=== PATIENT | male | born 1945 | race Caucasian/White ===

== ENCOUNTER 2020-10-24 10:48 | Inpatient (IN) ==
[2020-10-24] MEDS ORDERED: IOPAMIDOL 100 ML BOTTLE IV ONE (10:49)
[2020-10-24] MEDS ORDERED: 0.9 % SODIUM CHLORIDE 1,000 ML IV ONE ×3 (11:17→16:42)
[2020-10-24] MEDS ORDERED: ONDANSETRON 4 MG/2 ML VIAL IV ONE (11:21)
--- NOTE | 2020-10-24 11:22 | Emergency Department Note ---
HPI General Chief complaint: Urogenital-Male Stated complaint: catheter leaking and nausea Time Seen by Provider: 10/24/20 10:57 Source: patient, family, RN notes reviewed and old records reviewed Mode of arrival: ambulatory Limitations: no limitations History of Present Illness HPI Narrative: Narrative: 75-year-old male with indwelling Ruelas catheter notes that he has been having significant leakage around the catheter with a decreased urine output in the Ruelas. Said a problem with this for over a week. But it has become worse in the last 24 hours. Patient has had nausea but no vomiting has had chills but no fevers and complains of dysuria associated with his Ruelas catheter. He denies any chest pain he denies any shortness of breath he denies any cough. Patient was noted to be tachycardic upon arrival. Onset (ago): day(s) Location: other () Radiation: non-radiation Severity: moderate Quality: aching Consistency: intermittent Improves with: other (Urination) Worsens with: eating Associated symptoms: Reports fever/chills, loss of appetite, nausea/vomiting and shortness of breath; Denies confusion, chest pain, cough, diaphoresis, headaches, malaise, rash, seizure, syncope and weakness Treatments Prior to Arrival: other (Ruelas) Related Data Home Medications Medication Instructions Recorded Confirmed omega-3 fatty acids 1,000 mg 1,000 mg PO BID cap 03/02/15 10/19/20 capsule [id number]-LJ-lycopen-lutein 1 each PO DAILY 05/29/19 10/19/20 Previous Rx's Medication Instructions Recorded losartan 100 mg tablet 100 mg PO QDAY 90 Days #90 tab 10/31/19 amlodipine 10 mg tablet 10 mg PO HS #90 tab 12/09/19 potassium chloride 10 mEq 10 meq PO DAILY #90 cap 02/13/20 capsule,extended release insulin syringe-needle U-100 0.3 #100 each 03/04/20 mL 31 gauge x 5/16" blood sugar diagnostic #100 unknown measurement unit 03/11/20 code: strip sildenafil 100 mg tablet 100 mg PO ONCE PRN #25 tab 03/11/20 blood-glucose meter #1 each 03/12/20 lancets #100 each 03/12/20 atorvastatin 20 mg tablet See Rx Instructions .ROUTE 03/16/20 .COMPLEX #90 tab indapamide 2.5 mg tablet See Rx Instructions .ROUTE 03/26/20 .COMPLEX #45 tab metformin 500 mg tablet See Rx Instructions .ROUTE 03/26/20 .COMPLEX #450 tab levothyroxine 50 mcg tablet See Rx Instructions .ROUTE 04/23/20 .COMPLEX #90 tablet insulin detemir U-100 100 unit/mL See Rx Instructions .ROUTE 06/03/20 subcutaneous solution .COMPLEX #10 ml Allergies Allergy/AdvReac Type Severity Reaction Status Date / Time ciprofloxacin Allergy Intermediate Joint Pain Verified 10/19/20 18:59 testosterone [From AndroGel] AdvReac Intermediate Itching Verified 10/19/20 18:59 benazepril AdvReac Mild Cough Verified 10/19/20 18:59 Review of Systems ROS ROS Narrative: Narrative: All systems ED: reviewed and negative except as stated. PFSH Narrative Patient History Narrative: Narrative: Medical/Surgical/Family History All Active Problems (Updated 10/24/20 @ 13:59 by Cliff López MD) Acute urinary retention (Acute) Obstructed Ruelas catheter (Acute) Sepsis (Acute) Pulmonary emboli (Acute) Lumbago (Acute) Abdominal pain (Acute) Kidney stone on left side (Acute) Hypokalemia (Acute) Colon polyp (Chronic) Cyst of scrotum (Chronic) Encounter for Health Maintenance Examination in Adult (Chronic) Herpes zoster (Acute) Abdominal pain (Acute) Balanitis xerotica obliterans (Chronic) Chronic renal failure (Chronic) Hx of partial thyroidectomy (Acute) History of hip surgery (Acute) Hx of colonoscopy (Acute 12/03/07) Testosterone deficiency (Chronic) Peptic ulcer disease (Chronic) Hypothyroidism (acquired) (Chronic 11/03/14) Hypertension, essential (Chronic) Hyperlipidemia (Chronic) Elevated PSA (Chronic 10/24/13) Dyspepsia (Chronic) Diabetes mellitus, type II (Chronic) DJD (degenerative joint disease) (Chronic) Colonic polyp (Chronic) Anemia (Chronic 11/03/14) Medical History (Updated 10/24/20 @ 13:59 by Cliff López MD) Abdominal pain Abdominal pain Anemia (11/03/14) Balanitis xerotica obliterans BPH without obstruction/lower urinary tract symptoms (12/19/13) Chest pain 1999 Atypical, ETT 07/1999, negative cath 2003, echo 05/2009 showing ejection fraction of 55%, cardiology review 07/[address]. [address] Montoya on a yearly basis Chronic renal failure Colonic polyp 11/12-Dr. Vickers--ascending adenomatous polyp ( history of tubular adenoma 2002). 5-year sequence. 12/24/12 Colonoscopy--Dr. vickers--Splenic flexure to proximal sigmoid colon, a few medium nonbleeding diverticula. 10-year sequence Diabetes mellitus, type II 07/2004-NIDDM on , Metformin. Good foot care. Eye exam up to date as of 07/2010 DJD (degenerative joint disease) Multi-joint degenerative arthritis Dyspepsia 2010 Peptic ulcer disease with mild increased dyspepsia--on OTC Prilosec Elevated PSA (10/24/13) Epididymal cyst (05/13/14) Hydrocele small, bilateral Hyperlipidemia mild hyperlipidemia, diet treated Hypertension, essential Amlodipine, Benazepril Hypothyroidism (acquired) (11/03/14) Lumbago Nasal polyp 1999 History of nasal polyps with mild obstructive symptoms. Nasal Polypectomy 1999 Peptic ulcer disease Peptic ulcer disease with bleeding ulcer in the distant past. Reflux was controlled with Pepcid, then Nexium--now off. OTC Prilosec Testosterone deficiency Past history of testosterone deficiency; tried Androgel, discontinuing mid- 2006. Adequate results with Viagra Thyroid disorder Status post partial thyroidectomy for benign pathology 12/2007. Surgical History History of hip surgery 02/2008-Left Hip Surgery- Dr. burrell Hx of appendectomy Hx of arthroscopy Right knee arthroscopy Hx of colonoscopy (12/03/07) 11/12-Dr. Vickers--ascending adenomatous polyp ( history of tubular adenoma 2002). 5-year sequence. 12/24/12 Colonoscopy--Dr. vickers--Splenic flexure to proximal sigmoid colon, a few medium nonbleeding diverticula. 10-year sequence Hx of nasal polypectomy 1999-left Hx of partial thyroidectomy 12/2007 Partial thyroidectomy for benign pathology Hx of prostate biopsy (12/05/13) Family History father Diabetes mellitus Acute myocardial infarction none listed Essential hypertension Seizure Cerebrovascular accident (CVA) Social History Smoking Status: Never smoker Alcohol Intake Frequency: holiday/special occasion only Substance Use: does not use Exam Narrative Narrative: Narrative: General Limitations: no limitations General appearance: Present alert and in no apparent distress Head Head: Present atraumatic, normocephalic and normal inspection Eye Eye: Present normal appearance, PERRL and EOMI; Absent scleral icterus and conjunctival injection ENT ENT: Present normal exam, normal oropharynx and mucous membranes moist Neck Neck: Present normal inspection, full ROM and trachea midline; Absent lymphadenopathy and thyromegaly Chest Chest: Present normal inspection and symmetric chest wall rise; Absent tenderness Respiratory Respiratory: Present normal lung sounds bilaterally; Absent respiratory distress, rales/crackles, wheezes, stridor, accessory muscle use and prolonged expiratory phase Cardiovascular Cardiovascular: Present normal rhythm, tachycardia and systolic murmur; Absent diastolic murmur Adbominal Abdominal: Present soft; Absent distention, tenderness, guarding, rebound, rigidity, organomegaly and mass : Present other (Ruelas with leg bag in place) Extremities Extremities: Present normal inspection, normal capillary refill and pretibial edema; Absent pedal edema and calf tenderness Back Back: Absent CVA tenderness (R), CVA tenderness (L) and spinous process tend erness Neurological Neurological: Present alert and oriented X3 Psychiatric Psychiatric: Present normal affect and normal mood Skin Skin: Present warm (WNL) and dry Course Vital Signs Vital signs: Vital Signs Temperature 98.2 F 10/24/20 10:50 Pulse Rate 125 H 10/24/20 10:50 Respiratory Rate 18 10/24/20 10:50 Blood Pressure 142/93 10/24/20 10:50 Pulse Oximetry (%) 95 10/24/20 10:50 Temperature 98.2 F 10/24/20 10:50 Pulse Rate 105 H 10/24/20 13:58 Respiratory Rate 23 H 10/24/20 13:58 Blood Pressure 143/72 10/24/20 13:57 Pulse Oximetry (%) 95 10/24/20 13:58 MDM MDM Narrative Medical decision making narrative: Narrative: 75-year-old male with sepsis white count 18.0 with a left shift dehydration with a BUN to creatinine ratio of 28:1, chest CT shows a small pulmonary, D-dimer was elevated at 1.03 lactic acid was 3.2. Patient received IV fluid resuscitation and 1 L aliquots. I did not do the 30 cc/kg as patient has a history of congestive heart failure and cardiomegaly on chest x-ray. Patient received IV Rocephin for UTI. Differential Diagnosis Differential Diagnosis: Sepsis, PE, pneumonia, UTI, prostatitis. Medical Records Medical records reviewed: Yes I reviewed the patient's medical records. Lab Data Lab results reviewed: Yes I reviewed the patient's lab results. Result diagrams: 10/24/20 11:47 10/24/20 11:47 Labs: Lab Results 10/24/20 10/24/20 10/24/20 Range/Units 11:38 11:46 11:46 WBC (4.5-11.0) K/mcL RBC (4.50-5.90) M/mcL Hgb (13.5-16.5) g/dL Hct (41.0-55.0) % MCV (80.0-100.0) fL MCH (26.0-34.0) pg MCHC (31.0-36.0) g/dL RDW (11.5-14.5) % Plt Count (140-440) K/mcL MPV (7.4-10.4) fL Neut % (Auto) (38.0-78.0) % Lymph % (Auto) (15.0-49.0) % Boundary % (Auto) (1.0-12.0) % Eos % (Auto) (0.0-7.0) % Baso % (Auto) (0.0-2.0) % Lymph # (Auto) (1.50-4.80) K/mcL Boundary # (Auto) (0.10-0.90) K/mcL Eos # (Auto) (0.00-0.70) K/mcL Baso # (Auto) (0.00-0.20) K/mcL Absolute Neutrophils (1.80-8.00) K/mcL D-Dimer 1.03 H (0.27-0.50) ug/mL VBG Lactic Acid 3.2 H (0.5-2.0) mmol/L Sodium (133-145) mmol/L Potassium (3.3-5.1) mmol/L Chloride (96-108) mmol/L Carbon Dioxide (22-30) mmol/L Anion Gap (8.0-16.0) BUN (8-23) mg/dL Creatinine (0.7-1.2) mg/dL GFR Calculation Glucose (70-105) mg/dL Calcium (8.6-10.4) mg/dL Total Bilirubin (0.1-1.0) mg/dL AST (<40) U/L ALT (<40) U/L Alkaline Phosphatase (39-117) U/L Troponin T < 0.01 (<0.03) ng/mL Total Protein (5.9-8.4) gm/dL Albumin (3.2-5.2) gm/dL Globulin (2.2-3.7) gm/dL Albumin/Globulin Ratio (1.0-2.3) Urine Color Urine Appearance (Clear) Urine pH (5.0-9.0) Ur Specific [place] (1.000-1.035) Urine Protein (Negative) mg/dL Urine Glucose (UA) (Negative) mg/dL Urine Ketones (Negative) mg/dL Urine Occult Blood (Negative) mg/dL Urine Nitrate (Negative) Urine Bilirubin (Negative) mg/dL Urine Urobilinogen mg/dL Ur Leukocyte Esterase (Negative) /ug Urine RBC (0-1) /hpf Urine WBC (0-4) /hpf Ur Squamous Epith Cells (0-4) /hpf Urine Bacteria (0) /hpf Urine Mucus (None) /hpf Ur Culture Indicated? 10/24/20 10/24/20 10/24/20 Range/Units 11:47 11:47 12:32 WBC 18.0 H (4.5-11.0) K/mcL RBC 4.94 (4.50-5.90) M/mcL Hgb 15.2 (13.5-16.5) g/dL Hct 44.4 (41.0-55.0) % MCV 89.9 (80.0-100.0) fL MCH 30.8 (26.0-34.0) pg MCHC 34.2 (31.0-36.0) g/dL RDW 12.5 (11.5-14.5) % Plt Count 308 (140-440) K/mcL MPV 10.8 H (7.4-10.4) fL Neut % (Auto) 85.3 H (38.0-78.0) % Lymph % (Auto) 6.3 L (15.0-49.0) % Boundary % (Auto) 8.0 (1.0-12.0) % Eos % (Auto) 0.1 (0.0-7.0) % Baso % (Auto) 0.3 (0.0-2.0) % Lymph # (Auto) 1.13 L (1.50-4.80) K/mcL Boundary # (Auto) 1.44 H (0.10-0.90) K/mcL Eos # (Auto) 0.02 (0.00-0.70) K/mcL Baso # (Auto) 0.05 (0.00-0.20) K/mcL Absolute Neutrophils 15.37 H (1.80-8.00) K/mcL D-Dimer (0.27-0.50) ug/mL VBG Lactic Acid (0.5-2.0) mmol/L Sodium 133 (133-145) mmol/L Potassium 3.3 (3.3-5.1) mmol/L Chloride 96 (96-108) mmol/L Carbon Dioxide 19 L (22-30) mmol/L Anion Gap 18.0 H (8.0-16.0) BUN 28 H (8-23) mg/dL Creatinine 1.0 (0.7-1.2) mg/dL GFR Calculation 72 Glucose 218 H (70-105) mg/dL Calcium 9.8 (8.6-10.4) mg/dL Total Bilirubin 0.9 (0.1-1.0) mg/dL AST 17 (<40) U/L ALT 12 (<40) U/L Alkaline Phosphatase 82 (39-117) U/L Troponin T (<0.03) ng/mL Total Protein 7.3 (5.9-8.4) gm/dL Albumin 4.0 (3.2-5.2) gm/dL Globulin 3.3 (2.2-3.7) gm/dL Albumin/Globulin Ratio 1.2 (1.0-2.3) Urine Color Yellow Urine Appearance Cloudy A (Clear) Urine pH 5.0 (5.0-9.0) Ur Specific [place] 1.014 (1.000-1.035) Urine Protein 30 A (Negative) mg/dL Urine Glucose (UA) >=500 A (Negative) mg/dL Urine Ketones 20 A (Negative) mg/dL Urine Occult Blood >=1.0 A (Negative) mg/dL Urine Nitrate Negative (Negative) Urine Bilirubin Negative (Negative) mg/dL Urine Urobilinogen Negative mg/dL Ur Leukocyte Esterase 500 A (Negative) /ug Urine RBC > 182 H (0-1) /hpf Urine WBC > 182 H (0-4) /hpf Ur Squamous Epith Cells 1 (0-4) /hpf Urine Bacteria Mod A (0) /hpf Urine Mucus Mod A (None) /hpf Ur Culture Indicated? yes Radiology Data Radiology results reviewed: Yes I reviewed the patient's radiology results. Radiology results narrative: Chest x-ray with cardiomegaly, chest CT with pulmonary emboli EKG Data EKG #1: EKG attestation: Yes I reviewed and interpreted this EKG. EKG shows normal: sinus rhythm Rate: tachycardia (122) Cecil/QRS: normal and LBBB When compared to previous EKG there are: changes noted (Tachycardia at 122 with left bundle branch block. Left bundle branch block was noted 05/29/2019 EKG) Interpretation: nonspecific ST-T wave changes Pulse Oximetry Data Pulse Ox %: 91 Interpretation: 91% slightly hypoxic Discharge Plan Patient/Caregiver Discharge Instructions Pt seen by MACHINE PRECISION ENGRAVER/PA only: No Clinical Impression: Sepsis Qualifiers: Sepsis type: sepsis due to unspecified organism Sepsis acute organ dysfunction status: unspecified Qualified Code(s): A41.9 - Sepsis, unspecified organism Pulmonary emboli Qualifiers: Pulmonary embolism type: single subsegmental (without acute cor pulmonale) Qualified Code(s): I26.93 - Single subsegmental pulmonary embolism without acute cor pulmonale Patient Disposition: Xfer As Inpt ([facility]) Condition: Good Follow up with: Main Quiroga MD, FAAFP [Primary Care Provider] - Prescriptions: No Action losartan 100 mg tablet 100 mg PO QDAY 90 Days Qty: 90 RF: 3 amlodipine [Norvasc] 10 mg tablet 10 mg PO HS Qty: 90 RF: 4 potassium chloride 10 mEq capsule, extended release 10 meq PO DAILY Qty: 90 RF: 3 (DME) insulin syringe-needle U-100 [BD Insulin Syringe Ultra-Fine] 0.3 mL 31 gauge x 5/16" syringe See Dose Instructions .ROUTE .MEDSUPPLY Qty: 100 RF: 4 sildenafil 100 mg tablet 100 mg PO ONCE PRN (Reason: erectile dysfunction) Qty: 25 RF: 5 (DME) Accu-Chek Caprice Plus test strp Strip See Rx Instructions .ROUTE .COMPLEX Qty: 100 RF: 4 (DME) lancets [Accu-Chek Multiclix Lancet] Misc See Rx Instructions .ROUTE .MEDSUPPLY Qty: 100 RF: 6 (DME) blood-glucose meter [Accu-Chek Caprice Plus Meter] Misc See Rx Instructions .ROUTE .MEDSUPPLY Qty: 1 RF: 0 atorvastatin 20 mg tablet See Rx Instructions .ROUTE .COMPLEX Qty: 90 RF: 4 metformin 500 mg tablet See Rx Instructions .ROUTE .COMPLEX Qty: 450 RF: 4 indapamide 2.5 mg tablet See Rx Instructions .ROUTE .COMPLEX Qty: 45 RF: 4 levothyroxine 50 mcg tablet See Rx Instructions .ROUTE .COMPLEX Qty: 90 RF: 4 insulin detemir U-100 [Levemir U-100 Insulin] 100 unit/mL solution See Rx Instructions .ROUTE .COMPLEX Qty: 10 RF: 3 omega-3 fatty acids 1,000 mg capsule 1,000 mg PO BID RF: 0 ognyvvqc-uac-AC-lycopen-lutein 1 EACH tablet 1 each PO DAILY RF: 0
--- NOTE | 2020-10-24 11:42 | XRay Report ---
HISTORY: Tachycardia with hypoxia FINDINGS: Heart is mildly enlarged but magnified by portable technique. There is no congestive heart failure or pleural effusion. Lungs are clear but incompletely expanded due to suboptimal inspiration. There is no evidence of pneumonia or COPD. A 3 mm metallic foreign body is present in the left chest wall overlying the cardiac apex. This is a chronic finding. The aorta is mildly tortuous. The mediastinum and michelle are otherwise normal. The heart appears larger today than it was in 2013. IMPRESSION: Mild cardiomegaly without congestive heart failure Interpreted and Authenticated by: Alfie Fields 10/24/20
[2020-10-24 12:20] LABS: Basophils # (Auto) 0.05 K/mcL (0.00-0.20); Basophils % (Auto) 0.3 % (0.0-2.0); Eosinophils # (Auto) 0.02 K/mcL (0.00-0.70); Eosinophils % (Auto) 0.1 % (0.0-7.0); Hematocrit 44.4 % (41.0-55.0); Hemoglobin 15.2 g/dL (13.5-16.5); Lymphocytes # (Auto) 1.13 K/mcL (1.50-4.80); Lymphocytes % (Auto) 6.3 % (15.0-49.0); Mean Cell Volume 89.9 fL (80.0-100.0); Mean Corpuscular HGB Conc 34.2 g/dL (31.0-36.0); Mean Platelet Volume 10.8 fL (7.4-10.4); Monocytes # (Auto) 1.44 K/mcL (0.10-0.90); Neutrophils % (Auto) 85.3 % (38.0-78.0); Platelet Count 308 K/mcL (140-440); RBC 4.94 M/mcL (4.50-5.90); Red Cell Distribution Width 12.5 % (11.5-14.5)
[2020-10-24 12:48] LABS: ALT/SGPT 12 U/L (<40); AST/SGOT 17 U/L (<40); Albumin/Globulin Ratio 1.2 (1.0-2.3); Alkaline Phosphatase 82 U/L (39-117); Bilirubin,Total 0.9 mg/dL (0.1-1.0); Blood Urea Nitrogen 28 mg/dL (8-23); Calcium 9.8 mg/dL (8.6-10.4); Carbon Dioxide 19 mmol/L (22-30); Chloride 96 mmol/L (96-108); Globulin 3.3 gm/dL (2.2-3.7); Glomerular Filtration Rate 72; Glucose 218 mg/dL (70-105)
[2020-10-24] MEDS ORDERED: cefTRIAXone 1 GM VIAL IV ONE (12:51)
[2020-10-24 13:55] LABS: Appearance,Urine CLOUDY (Clear); Bacteria,Urine MOD /hpf (0); Bilirubin,Urine Negative (Negative); Color,Urine YELLOW; Culture Indicated,Urine yes; Glucose,Urine (UA) >=500 mg/dL (Negative); Ketones,Urine 20 mg/dL (Negative); Leukocyte Esterase,Urine 500 /ug (Negative); Mucus,Urine MOD /hpf; Nitrate,Urine Negative (Negative); Protein,Urine 30 mg/dL (Negative); Specific Gravity,Urine 1.014 (1.000-1.035); Urine Blood >=1.0 mg/dL (Negative); Urine RBC > 182 /hpf (0-1); Urine Squamous Epithelial Cell 1 /hpf (0-4); Urine WBC > 182 /hpf (0-4); Urobilinogen,Urine Negative
--- NOTE | 2020-10-24 14:34 | Cat Scan Report ---
History: Sepsis, shortness of breath, elevated serum d-dimer level with hypoxia TECHNIQUE: Following injection of intravenous nonionic contrast material phase images were acquired. Patient performed a Valsalva during the injection resulting in artifact. A reinjection was then performed and the patient was rescanned. Telephone 120 cc of Isovue-370 was injected intravenously. FINDINGS: There is a nodule at the lower pole of the left lobe of the thyroid which extends to the thoracic inlet. It measures 2.2 x 3.3 cm. This may be an adenoma. This measured 1.7 x 2.7 cm on the prior thyroid ultrasound done on 07/05/17. The right lobe of the thyroid has been resected. There is a small solitary intraluminal filling defect in the pulmonary artery to the superior segment left lower lobe. This is best seen on the axial MIPS images, image #46. A meniscus sign is seen on this image. No other filling defect is seen throughout the remainder the pulmonary arteries. There is a linear oriented band of discoid atelectasis in the superior segment of the right lower lobe. This also mild atelectasis in the posterior basal segment of the left lower lobe. No lobar consolidation is present. There is no mass or pleural effusion. Heart is upper limits of normal size with mild left ventricular dilatation. There is mild generalized fatty infiltration of the liver. No other abnormality is seen in the visualized portion of the upper abdomen. IMPRESSION: Solitary very small nonocclusive thrombus in the superior segment of the left lower lobe pulmonary artery. Mild atelectasis in both lower lobes Nodule in the left lobe of the thyroid Dr. López was called with the report Interpreted and Authenticated by: Alfie Fields 10/24/20
--- NOTE | 2020-10-24 15:29 | Internal Med History&Physical ---
HPI History of Present Illness Patient information: Note initiated : 10/24/20 at 3:27 pm Service Date, if different from initiated Date: [] Patient: Blade Ramos 75 y/o M admitted on for catheter leaking and nausea. Chief Complaint: [] History of present illness: Mr. Rmaos is a 75 year old male with a history of hypertension, hyperlipidemia, diabetes mellitus type 2, hypothyroidism, recent urinary retention requiring Ruelas catheter placement in the emergency department on 10/18/2020 complicated by leaking around the Ruelas catheter for which the patient returned to the emergency department on 10/20/2020 and received bladder irrigation, discharged home with the same Ruelas catheter. On 10/24/2020 the patient presented to the ED for nausea and chills found to be septic likely secondary to UTI. Patient had leukocytosis, lactic acid was 3.2. Work-up included D-dimer which was elevated, a CTA of the chest showed a small pulmonary embolism. Patient also had a new oxygen requirement in the emergency department. Patient says he has a history of enlarged prostate for which he followed with a urology in the past. He says that he had an elevated PSA at that time, prostate biopsies were negative. Review of systems Constitutional: no fever, fatigue, or weight loss Eyes: no vision changes or pain Cardiovascular: no chest pain, no palpitations Respiratory: positive for recent cough and exertional shortness of breath Gastrointestinal: no abdominal pain, no nausea, vomiting, or diarrhea Genitourinary: Difficulty voiding Musculoskeletal: no arthralgia or myalgia Integumentary: no skin lesion or wound Neurological: no focal weakness or numbness Psychiatric: no anxiety or depression Physical exam Head: Atraumatic, normal inspection. Eyes: normal appearance, no scleral icterus. Neck: full ROM Respiratory: no respiratory distress. Cardiovascular: regular tachycardia, S1, S2. GI/Abdominal: soft, nontender, no guarding. Extremities: full range of motion, nontender, 1+ LE pitting edema Neurological: CN II-XII intact, intact motor, intact sensation. Psychiatric: normal mood. Skin: warm, normal color PFSH PFSH All Active Problems (Updated 10/24/20 @ 13:59 by Cliff López MD) Acute urinary retention (Acute) Obstructed Ruelas catheter (Acute) Sepsis (Acute) Pulmonary emboli (Acute) Lumbago (Acute) Abdominal pain (Acute) Kidney stone on left side (Acute) Hypokalemia (Acute) Colon polyp (Chronic) Cyst of scrotum (Chronic) Encounter for Health Maintenance Examination in Adult (Chronic) Herpes zoster (Acute) Abdominal pain (Acute) Balanitis xerotica obliterans (Chronic) Chronic renal failure (Chronic) Hx of partial thyroidectomy (Acute) History of hip surgery (Acute) Hx of colonoscopy (Acute 12/03/07) Testosterone deficiency (Chronic) Peptic ulcer disease (Chronic) Hypothyroidism (acquired) (Chronic 11/03/14) Hypertension, essential (Chronic) Hyperlipidemia (Chronic) Elevated PSA (Chronic 10/24/13) Dyspepsia (Chronic) Diabetes mellitus, type II (Chronic) DJD (degenerative joint disease) (Chronic) Colonic polyp (Chronic) Anemia (Chronic 11/03/14) Medical History (Updated 10/24/20 @ 13:59 by Cliff López MD) Abdominal pain Abdominal pain Anemia (11/03/14) Balanitis xerotica obliterans BPH without obstruction/lower urinary tract symptoms (12/19/13) Chest pain 1999 Atypical, ETT 07/1999, negative cath 2003, echo 05/2009 showing ejection fraction of 55%, cardiology review 07/[address]. [address] Montoya on a yearly basis Chronic renal failure Colonic polyp 11/12-Dr. Vickers--ascending adenomatous polyp ( history of tubular adenoma 2002). 5-year sequence. 12/24/12 Colonoscopy--Dr. vickers--Splenic flexure to proximal sigmoid colon, a few medium nonbleeding diverticula. 10-year sequence Diabetes mellitus, type II 07/2004-NIDDM on , Metformin. Good foot care. Eye exam up to date as of 07/2010 DJD (degenerative joint disease) Multi-joint degenerative arthritis Dyspepsia 2010 Peptic ulcer disease with mild increased dyspepsia--on OTC Prilosec Elevated PSA (10/24/13) Epididymal cyst (05/13/14) Hydrocele small, bilateral Hyperlipidemia mild hyperlipidemia, diet treated Hypertension, essential Amlodipine, Benazepril Hypothyroidism (acquired) (11/03/14) Lumbago Nasal polyp 1999 History of nasal polyps with mild obstructive symptoms. Nasal Polypectomy 1999 Peptic ulcer disease Peptic ulcer disease with bleeding ulcer in the distant past. Reflux was controlled with Pepcid, then Nexium--now off. OTC Prilosec Testosterone deficiency Past history of testosterone deficiency; tried Androgel, discontinuing mid- 2006. Adequate results with Viagra Thyroid disorder Status post partial thyroidectomy for benign pathology 12/2007. Surgical History History of hip surgery 02/2008-Left Hip Surgery- Dr. burrell Hx of appendectomy Hx of arthroscopy Right knee arthroscopy Hx of colonoscopy (12/03/07) 11/12-Dr. Vickers--ascending adenomatous polyp ( history of tubular adenoma 2002). 5-year sequence. 12/24/12 Colonoscopy--Dr. vickers--Splenic flexure to proximal sigmoid colon, a few medium nonbleeding diverticula. 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[place] alcohol intake frequency: holiday/special occasion only substance use type: does not use MEDS/ALLERGIES Home Medications and Allergies Home Medications Medication Instructions Recorded Confirmed Type omega-3 fatty acids 1,000 mg 1,000 mg PO BID cap 03/02/15 10/19/20 History capsule sbrtetxv-git-MV-lycopen-lutein 1 each PO DAILY 05/29/19 10/19/20 History losartan 100 mg tablet 100 mg PO QDAY 90 Days #90 tab 10/31/19 10/19/20 Rx amlodipine 10 mg tablet 10 mg PO HS #90 tab 12/09/19 10/19/20 Rx potassium chloride 10 mEq 10 meq PO DAILY #90 cap 02/13/20 10/19/20 Rx capsule,extended release insulin syringe-needle U-100 0.3 #100 each 03/04/20 10/19/20 Rx mL 31 gauge x 5/16" blood sugar diagnostic #100 unknown measurement unit 03/11/20 10/19/20 Rx code: strip sildenafil 100 mg tablet 100 mg PO ONCE PRN #25 tab 03/11/20 10/19/20 Rx blood-glucose meter #1 each 03/12/20 10/19/20 Rx lancets #100 each 03/12/20 10/19/20 Rx atorvastatin 20 mg tablet See Rx Instructions .ROUTE 03/16/20 10/19/20 Rx .COMPLEX #90 tab indapamide 2.5 mg tablet See Rx Instructions .ROUTE 03/26/20 10/19/20 Rx .COMPLEX #45 tab metformin 500 mg tablet See Rx Instructions .ROUTE 03/26/20 10/19/20 Rx .COMPLEX #450 tab levothyroxine 50 mcg tablet See Rx Instructions .ROUTE 04/23/20 10/19/20 Rx .COMPLEX #90 tablet insulin detemir U-100 100 unit/mL See Rx Instructions .ROUTE 06/03/20 10/19/20 Rx subcutaneous solution .COMPLEX #10 ml Allergies Allergy/AdvReac Type Severity Reaction Status Date / Time ciprofloxacin Allergy Intermediate Joint Pain Verified 10/19/20 18:59 testosterone [From AndroGel] AdvReac Intermediate Itching Verified 10/19/20 18:59 benazepril AdvReac Mild Cough Verified 10/19/20 18:59 EXAM Constitutional Vitals: Temp Pulse Resp BP Pulse Ox 98.2 F 108 H 18 126/76 94 10/24/20 10:50 10/24/20 14:46 10/24/20 14:46 10/24/20 14:46 10/24/20 14:46 DATA Data Completed and Pending Labs: Labs from last 24 hours 10/24/20 10/24/20 10/24/20 12:32 11:47 11:47 WBC 18.0 H RBC 4.94 Hgb 15.2 Hct 44.4 MCV 89.9 MCH 30.8 MCHC 34.2 RDW 12.5 Plt Count 308 MPV 10.8 H Neut % (Auto) 85.3 H Lymph % (Auto) 6.3 L [place] % (Auto) 8.0 Eos % (Auto) 0.1 Baso % (Auto) 0.3 Lymph # (Auto) 1.13 L [place] # (Auto) 1.44 H Eos # (Auto) 0.02 Baso # (Auto) 0.05 Absolute Neutrophils 15.37 H D-Dimer VBG Lactic Acid Sodium 133 Potassium 3.3 Chloride 96 Carbon Dioxide 19 L Anion Gap 18.0 H BUN 28 H Creatinine 1.0 GFR Calculation 72 Glucose 218 H Calcium 9.8 Total Bilirubin 0.9 AST 17 ALT 12 Alkaline Phosphatase 82 Troponin T Total Protein 7.3 Albumin 4.0 Globulin 3.3 Albumin/Globulin Ratio 1.2 Urine Color Yellow Urine Appearance Cloudy A Urine pH 5.0 Ur Specific [place] 1.014 Urine Protein 30 A Urine Glucose (UA) >=500 A Urine Ketones 20 A Urine Occult Blood >=1.0 A Urine Nitrate Negative Urine Bilirubin Negative Urine Urobilinogen Negative Ur Leukocyte Esterase 500 A Urine RBC > 182 H Urine WBC > 182 H Ur Squamous Epith Cells 1 Urine Bacteria Mod A Urine Mucus Mod A Ur Culture Indicated? yes 10/24/20 10/24/20 10/24/20 11:46 11:46 11:38 WBC RBC Hgb Hct MCV MCH MCHC RDW Plt Count MPV Neut % (Auto) Lymph % (Auto) [place] % (Auto) Eos % (Auto) Baso % (Auto) Lymph # (Auto) [place] # (Auto) Eos # (Auto) Baso # (Auto) Absolute Neutrophils D-Dimer 1.03 H VBG Lactic Acid 3.2 H Sodium Potassium Chloride Carbon Dioxide Anion Gap BUN Creatinine GFR Calculation Glucose Calcium Total Bilirubin AST ALT Alkaline Phosphatase Troponin T < 0.01 Total Protein Albumin Globulin Albumin/Globulin Ratio Urine Color Urine Appearance Urine pH Ur Specific [place] Urine Protein Urine Glucose (UA) Urine Ketones Urine Occult Blood Urine Nitrate Urine Bilirubin Urine Urobilinogen Ur Leukocyte Esterase Urine RBC Urine WBC Ur Squamous Epith Cells Urine Bacteria Urine Mucus Ur Culture Indicated? A/P Narrative A/P Narrative: Assessment: 75-year-old male with a history of hypertension, hyperlipidemia, diabetes mellitus type 2, hypothyroidism, enlarged prostate, and recent urinary retention requiring Ruelas catheter placement in the ED followed by leakage around the Ruelas requiring another visit to the ED for irrigation now admitted for sepsis probably secondary to UTI. Patient was also found to have a small pulmonary embolism in the ED, new oxygen requirement of about 2 L/min. #Sepsis likely secondary to UTI -Prior urine cultures grew Enterococcus #Pulmonary embolism, low risk #Hypoxia probably due to PE #Diabetes mellitus type 2 #Hypertension #Hyperlipidemia #Hypothyroidism #Hx enlarged prostate #Left thyroid nodule Plan -Vancomycin per pharmacy and cefepime for now. -Follow blood and urine cultures, de-escalate ABX accordingly. -IV fluid for sepsis, follow lactic acid. -Oxygen supplementation as needed. -Start Eliquis twice daily at PE dosing. -CT abdomen pelvis without contrast for urology work-up. -Check PSA. -Urology consult for urinary retention. -Lantus and SSI. -Medication reconciliation, continue essential home medications. -Trend labs. -Telemetry. -DVT PPx: Eliquis -CODE STATUS: Full -Disposition: Home with urology follow-up. Time Spent With Patient Time: Total time spent is greater than 50% in coordination of care (as documented) at patient's floor/unit and/or counseling patient:
[2020-10-24] MEDS ORDERED: VANCOMYCIN PER PHARMACY IV ONE (16:42)
[2020-10-24] MEDS ORDERED: LACTULOSE 20 GM/30 ML ORAL.SOL PO PRN (16:42)
[2020-10-24] MEDS ORDERED: ONDANSETRON 4 MG/2 ML VIAL IV PRN (16:42)
[2020-10-24] MEDS ORDERED: SENNOSIDES 1 TABLET PO PRN (16:42)
[2020-10-24] MEDS ORDERED: INSULIN LISPRO 1 UNIT/0.01 ML UNIT SQ SCH (17:00)
[2020-10-24] MEDS ORDERED: DEXTROSE 31 GM ORAL.SUSP PO PRN (17:50)
[2020-10-24] MEDS ORDERED: DEXTROSE 50% 50 ML VIAL IV PRN (17:50)
--- NOTE | 2020-10-24 17:55 | General Surgery Consult Note ---
HPI Data of Consult Patient: known to practice within the last 3 years Consult date: 10/24/20 Primary Care Provider: Main Quiroga M.D., F.A.A.F.P. Consult Narrative Patient Information: Note initiated : 10/24/20 at 5:46 pm Service Date, if different from initiated Date: [] Patient: Blade Ramos 75 y/o M admitted on 10/24/20 for catheter leaking and nausea. 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 Patient is now had increased discomfort with catheter and was found to have likely UTI and further evaluation demonstrated venous thrombosis Now administered for medical management PFSH PFSH All Active Problems (Updated 10/24/20 @ 13:59 by Cliff López MD) Acute urinary retention (Acute) Obstructed Ruelas catheter (Acute) Sepsis (Acute) Pulmonary emboli (Acute) Lumbago (Acute) Abdominal pain (Acute) Kidney stone on left side (Acute) Hypokalemia (Acute) Colon polyp (Chronic) Cyst of scrotum (Chronic) Encounter for Health Maintenance Examination in Adult (Chronic) Herpes zoster (Acute) Abdominal pain (Acute) Balanitis xerotica obliterans (Chronic) Chronic renal failure (Chronic) Hx of partial thyroidectomy (Acute) History of hip surgery (Acute) Hx of colonoscopy (Acute 12/03/07) Testosterone deficiency (Chronic) Peptic ulcer disease (Chronic) Hypothyroidism (acquired) (Chronic 11/03/14) Hypertension, essential (Chronic) Hyperlipidemia (Chronic) Elevated PSA (Chronic 10/24/13) Dyspepsia (Chronic) Diabetes mellitus, type II (Chronic) DJD (degenerative joint disease) (Chronic) Colonic polyp (Chronic) Anemia (Chronic 11/03/14) Medical History (Updated 10/24/20 @ 13:59 by Cliff López MD) Abdominal pain Abdominal pain Anemia (11/03/14) Balanitis xerotica obliterans BPH without obstruction/lower urinary tract symptoms (12/19/13) Chest pain 1999 Atypical, ETT 07/1999, negative cath 2003, echo 05/2009 showing ejection fraction of 55%, cardiology review 07/[address]. [address] Montoya on a yearly basis Chronic renal failure Colonic polyp 11/12-Dr. Vickers--ascending adenomatous polyp ( history of tubular adenoma 2002). 5-year sequence. 12/24/12 Colonoscopy--Dr. vickers--Splenic flexure to proximal sigmoid colon, a few medium nonbleeding diverticula. 10-year sequence Diabetes mellitus, type II 07/2004-NIDDM on , Metformin. Good foot care. Eye exam up to date as of 07/2010 DJD (degenerative joint disease) Multi-joint degenerative arthritis Dyspepsia 2010 Peptic ulcer disease with mild increased dyspepsia--on OTC Prilosec Elevated PSA (10/24/13) Epididymal cyst (05/13/14) Hydrocele small, bilateral Hyperlipidemia mild hyperlipidemia, diet treated Hypertension, essential Amlodipine, Benazepril Hypothyroidism (acquired) (11/03/14) Lumbago Nasal polyp 1999 History of nasal polyps with mild obstructive symptoms. Nasal Polypectomy 1999 Peptic ulcer disease Peptic ulcer disease with bleeding ulcer in the distant past. Reflux was controlled with Pepcid, then Nexium--now off. OTC Prilosec Testosterone deficiency Past history of testosterone deficiency; tried Androgel, discontinuing mid- 2006. Adequate results with Viagra Thyroid disorder Status post partial thyroidectomy for benign pathology 12/2007. Surgical History History of hip surgery 02/2008-Left Hip Surgery- Dr. burrell Hx of appendectomy Hx of arthroscopy Right knee arthroscopy Hx of colonoscopy (12/03/07) 11/12-Dr. Vickers--ascending adenomatous polyp ( history of tubular adenoma 2002). 5-year sequence. 12/24/12 Colonoscopy--Dr. vickers--Splenic flexure to proximal sigmoid colon, a few medium nonbleeding diverticula. 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[employer]--[employer] alcohol intake frequency: holiday/special occasion only substance use type: does not use MEDS/ALLERGIES Home Medications and Allergies Home Medications Medication Instructions Recorded Confirmed Type omega-3 fatty acids 1,000 mg 1,000 mg PO BID cap 03/02/15 10/24/20 History capsule miboaaor-ymr-SI-lycopen-lutein 1 each PO DAILY 05/29/19 10/24/20 History amlodipine 10 mg tablet 10 mg PO HS #90 tab 12/09/19 10/24/20 Rx potassium chloride 10 mEq 10 meq PO DAILY #90 cap 02/13/20 10/24/20 Rx capsule,extended release insulin syringe-needle U-100 0.3 #100 each 03/04/20 10/24/20 Rx mL 31 gauge x 5/16" blood sugar diagnostic #100 unknown measurement unit 03/11/20 10/24/20 Rx code: strip sildenafil 100 mg tablet 100 mg PO ONCE PRN #25 tab 03/11/20 10/24/20 Rx blood-glucose meter #1 each 03/12/20 10/24/20 Rx lancets #100 each 03/12/20 10/24/20 Rx metformin 500 mg tablet See Rx Instructions .ROUTE 03/26/20 10/24/20 Rx .COMPLEX #450 tab Levemir U-100 Insulin 30 unit SUBCUT HS 10/24/20 10/24/20 History atorvastatin 20 mg PO HS 10/24/20 10/24/20 History indapamide 2.5 mg PO Q48H 10/24/20 10/24/20 History levothyroxine 50 mcg PO DAILY 10/24/20 10/24/20 History losartan 100 mg PO BID 10/24/20 10/24/20 History sildenafil 100 mg PO PRN PRN 10/24/20 10/24/20 History Allergies Allergy/AdvReac Type Severity Reaction Status Date / Time ciprofloxacin Allergy Intermediate Joint Pain Verified 10/19/20 18:59 testosterone [From AndroGel] AdvReac Intermediate Itching Verified 10/19/20 18:59 benazepril AdvReac Mild Cough Verified 10/19/20 18:59 Physical Examination Vital Signs Vital signs: Temp Pulse Resp BP Pulse Ox 98.2 F 105 H 20 148/94 93 10/24/20 17:36 10/24/20 15:46 10/24/20 17:36 10/24/20 17:36 10/24/20 17:36 Genitourinary Genitourinary (Male): Present normal penis with no external lesions Rectum Rectum: Present other (Deferred) Additional Findings Additional exam: Patient alert oriented cooperative chest normal respiratory excursion Cardiac regular rhythm HEENT within normal limits Results Labs Result diagrams: 10/24/20 11:47 10/24/20 11:47 Labs: Abnormal lab results 10/24/20 10/24/20 10/24/20 Range/Units 11:38 11:46 11:47 WBC 18.0 H (4.5-11.0) K/mcL MPV 10.8 H (7.4-10.4) fL Neut % (Auto) 85.3 H (38.0-78.0) % Lymph % (Auto) 6.3 L (15.0-49.0) % Lymph # (Auto) 1.13 L (1.50-4.80) K/mcL [place] # (Auto) 1.44 H (0.10-0.90) K/mcL Absolute Neutrophils 15.37 H (1.80-8.00) K/mcL D-Dimer 1.03 H (0.27-0.50) ug/mL VBG Lactic Acid 3.2 H (0.5-2.0) mmol/L Carbon Dioxide (22-30) mmol/L Anion Gap (8.0-16.0) BUN (8-23) mg/dL Glucose (70-105) mg/dL Urine Appearance (Clear) Urine Protein (Negative) mg/dL Urine Glucose (UA) (Negative) mg/dL Urine Ketones (Negative) mg/dL Urine Occult Blood (Negative) mg/dL Ur Leukocyte Esterase (Negative) /ug Urine RBC (0-1) /hpf Urine WBC (0-4) /hpf Urine Bacteria (0) /hpf Urine Mucus (None) /hpf 10/24/20 10/24/20 Range/Units 11:47 12:32 WBC (4.5-11.0) K/mcL MPV (7.4-10.4) fL Neut % (Auto) (38.0-78.0) % Lymph % (Auto) (15.0-49.0) % Lymph # (Auto) (1.50-4.80) K/mcL [place] # (Auto) (0.10-0.90) K/mcL Absolute Neutrophils (1.80-8.00) K/mcL D-Dimer (0.27-0.50) ug/mL VBG Lactic Acid (0.5-2.0) mmol/L Carbon Dioxide 19 L (22-30) mmol/L Anion Gap 18.0 H (8.0-16.0) BUN 28 H (8-23) mg/dL Glucose 218 H (70-105) mg/dL Urine Appearance Cloudy A (Clear) Urine Protein 30 A (Negative) mg/dL Urine Glucose (UA) >=500 A (Negative) mg/dL Urine Ketones 20 A (Negative) mg/dL Urine Occult Blood >=1.0 A (Negative) mg/dL Ur Leukocyte Esterase 500 A (Negative) /ug Urine RBC > 182 H (0-1) /hpf Urine WBC > 182 H (0-4) /hpf Urine Bacteria Mod A (0) /hpf Urine Mucus Mod A (None) /hpf Diabetes panel 10/24/20 Range/Units 11:47 Sodium 133 (133-145) mmol/L Potassium 3.3 (3.3-5.1) mmol/L Chloride 96 (96-108) mmol/L Carbon Dioxide 19 L (22-30) mmol/L BUN 28 H (8-23) mg/dL Creatinine 1.0 (0.7-1.2) mg/dL Glucose 218 H (70-105) mg/dL Calcium 9.8 (8.6-10.4) mg/dL AST 17 (<40) U/L ALT 12 (<40) U/L Alkaline Phosphatase 82 (39-117) U/L Total Protein 7.3 (5.9-8.4) gm/dL Albumin 4.0 (3.2-5.2) gm/dL Calcium panel 10/24/20 Range/Units 11:47 Calcium 9.8 (8.6-10.4) mg/dL Albumin 4.0 (3.2-5.2) gm/dL Pituitary panel 10/24/20 Range/Units 11:47 Sodium 133 (133-145) mmol/L Potassium 3.3 (3.3-5.1) mmol/L Chloride 96 (96-108) mmol/L Carbon Dioxide 19 L (22-30) mmol/L BUN 28 H (8-23) mg/dL Creatinine 1.0 (0.7-1.2) mg/dL Glucose 218 H (70-105) mg/dL Calcium 9.8 (8.6-10.4) mg/dL Adrenal panel 10/24/20 Range/Units 11:47 Sodium 133 (133-145) mmol/L Potassium 3.3 (3.3-5.1) mmol/L Chloride 96 (96-108) mmol/L Carbon Dioxide 19 L (22-30) mmol/L BUN 28 H (8-23) mg/dL Creatinine 1.0 (0.7-1.2) mg/dL Glucose 218 H (70-105) mg/dL Calcium 9.8 (8.6-10.4) mg/dL Total Bilirubin 0.9 (0.1-1.0) mg/dL AST 17 (<40) U/L ALT 12 (<40) U/L Alkaline Phosphatase 82 (39-117) U/L Total Protein 7.3 (5.9-8.4) gm/dL Albumin 4.0 (3.2-5.2) gm/dL All other labs normal. A/P Narrative A/P Narrative: Assessment: BPH marked with elevated PSA and likely UTI with no catheter at present and left likely persistent renal pelvis nonobstructive nephrolithiasis Venous thrombosis noted and agree with medical management Plan: Await culture and lab results and would hold catheterization as possible Would empirically initiate Flomax therapy Continue expectant management for stone We will continue to follow and agree with antibiotic management Time Spent With Patient Time: Total time spent is greater than 50% in coordination of care (as documented) at patient's floor/unit and/or counseling patient:
[2020-10-24] MEDS ORDERED: INSULIN LISPRO 1 UNIT/0.01 ML UNIT SQ ONE (18:16)
[2020-10-24 18:17] LABS: ALT/SGPT 13 U/L (<40); AST/SGOT 18 U/L (<40); Albumin/Globulin Ratio 1.1 (1.0-2.3); Alkaline Phosphatase 85 U/L (39-117); Bilirubin,Direct 0.3 mg/dL (<0.3); Bilirubin,Total 0.8 mg/dL (0.1-1.0); Blood Urea Nitrogen 29 mg/dL (8-23); Carbon Dioxide 15 mmol/L (22-30); Chloride 101 mmol/L (96-108); Globulin 3.5 gm/dL (2.2-3.7); Glomerular Filtration Rate 64; Glucose 226 mg/dL (70-105); Lactate Dehydrogenase 223 U/L (135-225); Phosphorous 2.9 mg/dL (2.5-4.5); Triglycerides 81 mg/dL (<150); Uric Acid 4.2 mg/dL (2.5-8.0)
[2020-10-24] MEDS: INSULIN LISPRO 1 UNIT/0.01 ML UNIT SQ SCH ×2 (18:26→21:33)
[2020-10-24] MEDS: DOCUSATE SODIUM 100 MG CAPSULE PO SCH (20:34)
[2020-10-24] MEDS ORDERED: INSULIN GLARGINE, HUMAN 1 UNIT/0.01 ML SQ SCH (21:00)
[2020-10-24] MEDS ORDERED: VANCOMYCIN 1,500 MG in 0.9 % SODIUM CHLORIDE 500 ML IV ONE (21:00)
[2020-10-24] MEDS ORDERED: TAMSULOSIN 0.4 MG CAPSULE PO SCH (21:00)
[2020-10-24] MEDS: APIXABAN 5 MG TABLET PO SCH ×2 (21:13)
[2020-10-24] MEDS: CEFEPIME 2 GM VIAL IV SCH (21:13)
[2020-10-24] MEDS: 0.9 % SODIUM CHLORIDE 10 ML SYRINGE IV SCH (21:15)
[2020-10-25] MEDS: 0.9 % SODIUM CHLORIDE 10 ML SYRINGE IV SCH ×3 (05:45→20:47)
[2020-10-25 05:58] LABS: Hemoglobin 12.2 g/dL (13.5-16.5); Mean Cell Volume 91.1 fL (80.0-100.0); Mean Corpuscular HGB Conc 33.9 g/dL (31.0-36.0); Mean Platelet Volume 10.9 fL (7.4-10.4); Platelet Count 217 K/mcL (140-440); RBC 3.95 M/mcL (4.50-5.90); Red Cell Distribution Width 12.7 % (11.5-14.5); WBC 15.7 K/mcL (4.5-11.0)
[2020-10-25 06:22] LABS: ALT/SGPT 7 U/L (<40); AST/SGOT 11 U/L (<40); Albumin/Globulin Ratio 1.1 (1.0-2.3); Alkaline Phosphatase 62 U/L (39-117); Bilirubin,Direct 0.2 mg/dL (<0.3); Bilirubin,Total 0.7 mg/dL (0.1-1.0); Blood Urea Nitrogen 25 mg/dL (8-23); Calcium 8.2 mg/dL (8.6-10.4); Carbon Dioxide 25 mmol/L (22-30); Chloride 105 mmol/L (96-108); Globulin 2.7 gm/dL (2.2-3.7); Glomerular Filtration Rate 64; Glucose 178 mg/dL (70-105); Lactate Dehydrogenase 151 U/L (135-225); Phosphorous 2.2 mg/dL (2.5-4.5); Triglycerides 49 mg/dL (<150); Uric Acid 3.8 mg/dL (2.5-8.0)
[2020-10-25 06:41] LABS: Band Neutrophils % 20 % (0-10); Lymphocytes % 11 % (15-49); Monocytes % (Manual) 10 % (1-12); Platelet Estimate NORMAL (Normal); RBC Morphology NORMAL (Normal); Segmented Neutrophils % 59 % (38-78)
[2020-10-25] MEDS ORDERED: POTASSIUM CHLORIDE 20 MEQ TABLET PO ONE (07:10)
[2020-10-25] MEDS ORDERED: VANCOMYCIN PER PHARMACY IV SCH (08:00)
--- NOTE | 2020-10-25 08:02 | Cat Scan Report ---
history: Urinary tract infection, enlarged prostate and urinary retention TECHNIQUE: The patient was imaged without additional IV contrast. Intravenous contrast had been administered prior to this exam for a chest CT angiogram. No oral contrast was administered. Patient was scanned at 2.5 mm intervals from the diaphragm to the symphysis pubis. Sagittal and coronal reformats were created. Radiation exposure was limited using dose reduction technology. FINDINGS: Mild atelectasis is seen at the left lung base, unchanged from the preceding chest CT. The liver and spleen are normal in size and homogeneous. The gallbladder bile ducts are normal. There is no mass or inflammation the pancreas. The adrenals are normal.. The kidneys are normal in size shape and contour. The 1.8 cm low attenuation nodular structure seen in the medullary region of the left kidney on the prior abdomen CT dated 07/20/18 is normal cortex. This represents a column of Paramjit. There is no renal mass. The previously seen stone in the left ureter has cleared. There is contrast in the renal collecting systems and ureters bilaterally which could potentially obscure small underlying stone. There is stranding of the fat surrounding the left renal pelvis. Much greater stranding was seen on the prior study of 07/20/18. This could be scar tissue from the prior obstruction or recurrent inflammation. There is no evidence of renal abscess. The right kidney is normal. Both ureters are normal in caliber and contrast flows through both ureters into the bladder. The prostate is severely enlarged and heterogeneous. It has a nodular upper border and protrudes into the lumen of the bladder. Bladder is markedly elevated from the floor the pelvis. There is circumferential thickening of the bladder wall. Small intramural diverticula are present in the dome. The fat surrounding the bladder is streaky. No discrete bladder tumor is seen. There is no evidence of a bladder leak. Seminal vesicles are enlarged and symmetric. No ascites, abscess or adenopathy or abscess are present in the abdomen or pelvis. Mild atherosclerosis is present in the aorta. Patient has a left hip prosthesis. Degenerative changes are present at multiple levels in the thoracic and lumbar spine. Severe spinal canal stenosis is present at L4-5. IMPRESSION: Severely enlarged prostate causing bladder outlet obstruction. Thickened bladder wall with surrounding fat stranding. This may be a combination of chronic bladder outlet obstruction and cystitis. Dr. Moreland was called with the report Interpreted and Authenticated by: Alfie Fields 10/25/20
[2020-10-25] MEDS: CEFEPIME 2 GM VIAL IV SCH ×2 (08:38→20:44)
[2020-10-25] MEDS: DOCUSATE SODIUM 100 MG CAPSULE PO SCH ×2 (08:39→20:44)
[2020-10-25] MEDS: INSULIN LISPRO 1 UNIT/0.01 ML UNIT SQ SCH ×4 (08:59→20:46)
[2020-10-25] MEDS ORDERED: VANCOMYCIN 1,500 MG in 0.9 % SODIUM CHLORIDE 500 ML IV SCH (09:00)
[2020-10-25] MEDS: APIXABAN 5 MG TABLET PO SCH ×2 (09:04→20:43)
--- NOTE | 2020-10-25 11:30 | General Surgery Progress Note ---
SUBJECTIVE Subjective Patient information: Note initiated : 10/25/20 at 11:26 am Service Date, if different from initiated Date: [] Patient: Blade Ramos 75 y/o M admitted on 10/24/20 for catheter leaking and nausea. Chief Complaint: [] Interval history: Patient continues to do well presently with no new symptoms Minimal blood noted in urine and patient continues to void Constitutional Vitals: Vital Signs Temp Pulse Resp BP Pulse Ox 98.5 F 105 H 20 136/70 93 10/25/20 08:01 10/24/20 15:46 10/24/20 17:36 10/25/20 08:01 10/25/20 08:01 Period Temp Pulse Resp BP Sys/Henry Pulse Ox Last 24 Hr 98.2 F-98.8 F 104-118 18- 123-167/68-113 89-96 Intake and Output 10/24/20 10/25/20 10/25/20 21:59 05:59 13:59 Intake Total 2240 500 620 Output Total 325 525 Balance 1914 620 Weight 211 lb 9.6 oz Intake & Output: Intake & Output 10/24/20 10/25/20 10/25/20 21:59 05:59 13:59 Intake Total 2240 500 620 Output Total 325 525 Balance 1914 620 Weight 211 lb 9.6 oz Intake: IV 2000 500 500 Sodium Chloride 0.9% 1,000 ml @ 2000 Wide Open IV BOLUS ONE Rx#: [id number] Vancomycin 1,500 mg In Sodium 500 500 Chloride 0.9% 500 ml @ 333.3 mls/hr IV Q24H [facility] Rx#: [id number] Oral 240 120 Output: Void Amount 325 525 Other: Meal Dinner Breakfast Percent of Meal Consumed 75% 50% Feeding Ability Independent Independent Urine Appearance Clear Clear Urine Color Pale # Voids 4 2 Additional findings Additional findings: Patient alert oriented cooperative Vital signs stable Urinary output remains essentially clear otherwise negative on exam Abdomen soft nontender No respiratory distress cardiac rhythm normal A/P Narrative A/P Narrative: Assessment: Likely cystitis with BPH with confirmation on radiologic interpretation of CT BPH with likely prostatitis cystitis and likely secondary elevated PSA to 42 with baseline being in the 20 range by history Would continue with alpha-daryl therapy and antibiotics pending urine culture results from primary demonstrating large gram-negative bacilli Continue hydration and antiembolism therapy as per hospitalist No symptoms from likely left-sided nephrolithiasis and renal function remains normal Plan: Continue present medical management we will continue to follow no surgical intervention at present Time Spent With Patient Time: Total time spent is greater than 50% in coordination of care (as documented) at patient's floor/unit and/or counseling patient:
[2020-10-25] MEDS ORDERED: LACTULOSE 20 GM/30 ML ORAL.SOL PO PRN (12:38)
[2020-10-25] MEDS ORDERED: DEXTROSE 50% 50 ML VIAL IV PRN (12:38)
[2020-10-25] MEDS ORDERED: DEXTROSE 31 GM ORAL.SUSP PO PRN (12:38)
[2020-10-25] MEDS ORDERED: SENNOSIDES 1 TABLET PO PRN (12:38)
[2020-10-25] MEDS ORDERED: ONDANSETRON 4 MG/2 ML VIAL IV PRN (12:38)
--- NOTE | 2020-10-25 15:20 | Internal Med Progress Note ---
SUBJECTIVE Subjective Patient information: Note initiated : 10/25/20 at 3:19 pm Service Date, if different from initiated Date: [] Patient: Blade Ramos 75 y/o M admitted on 10/24/20 for catheter leaking and nausea. Chief Complaint: [] Interval history: Mr. Ramos is a 75 year old male with a history of hypertension, hyperlipidemia, diabetes mellitus type 2, hypothyroidism, recent urinary retention requiring Ruelas catheter placement in the emergency department on 10/18/2020 complicated by leaking around the Ruelas catheter for which the patient returned to the emergency department on 10/20/2020 and received bladder irrigation, discharged home with the same Ruelas catheter. On 10/24/2020 the patient presented to the ED for nausea and chills found to be septic likely secondary to UTI. Patient had leukocytosis, lactic acid was 3.2. Work-up included D-dimer which was elevated, a CTA of the chest showed a small pulmonary embolism. Patient also had a new oxygen requirement in the emergency department. Patient says he has a history of enlarged prostate for which he followed with a urology in the past. He says that he had an elevated PSA at that time, prostate biopsies were negative. 10/25 Urine culture growing gram negative bacillus-Vancomycin discontinued, Cefepime continued. Urology recommends longer course of antibiotic given concerns for a ureteral stone and left testicular tenderness that may be infectious in addition to the UTI. Review of systems: no fever or chills, no urinary retention Physical exam Head: Atraumatic, normal inspection. Eyes: normal appearance, no scleral icterus. Neck: full ROM Respiratory: no respiratory distress. Cardiovascular: regular tachycardia, S1, S2. GI/Abdominal: soft, nontender, no guarding. Extremities: full range of motion, nontender, 1+ LE pitting edema Neurological: CN II-XII intact, intact motor, intact sensation. Psychiatric: normal mood. Skin: warm, normal color Constitutional Vitals: Vital Signs Temp Pulse Resp BP Pulse Ox 98.8 F 105 H 20 132/72 92 10/25/20 12:00 10/24/20 15:46 10/25/20 12:00 10/25/20 12:00 10/25/20 12:00 Period Temp Pulse Resp BP Sys/Henry Pulse Ox Last 24 Hr 98.2 F-98.8 F 104-105 20-26 123-165/68-94 89-95 Intake and Output 10/25/20 10/25/20 10/25/20 05:59 13:59 21:59 Intake Total 500 1310 Output Total 525 Balance -25 1310 Intake & Output: Intake & Output 10/25/20 10/25/20 10/25/20 05:59 13:59 21:59 Intake Total 500 1310 Output Total 525 Balance -25 1310 Intake: IV 500 500 Vancomycin 1,500 mg In Sodium 500 500 Chloride 0.9% 500 ml @ 333.3 mls/hr IV Q24H [facility] Rx#: [id number] Oral 810 Output: Void Amount 525 Other: Meal Lunch Percent of Meal Consumed 100% Feeding Ability Independent Urine Appearance Clear Clear Urine Color Pale # Voids 2 OBJ DATA Labs CBC & Chem 7: 10/25/20 05:08 10/25/20 05:08 Labs: Abnormal Lab Results 10/25/20 10/25/20 10/24/20 05:08 05:08 18:25 WBC 15.7 H RBC 3.95 L Hgb 12.2 L Hct 36.0 L MPV 10.9 H Neut % (Auto) Lymph % (Auto) Lymph # (Auto) [place] # (Auto) Band Neutrophils % 20 H Lymphocytes % 11 L Absolute Neutrophils D-Dimer VBG Lactic Acid 3.2 H Potassium 3.2 L Carbon Dioxide Anion Gap BUN 25 H Glucose 178 H Calcium 8.2 L Phosphorus 2.2 L Direct Bilirubin Total Protein 5.7 L Albumin 3.0 L Prostate Specific Ag Urine Appearance Urine Protein Urine Glucose (UA) Urine Ketones Urine Occult Blood Ur Leukocyte Esterase Urine RBC Urine WBC Urine Bacteria Urine Mucus 10/24/20 10/24/20 10/24/20 12:32 11:47 11:47 WBC RBC Hgb Hct MPV Neut % (Auto) Lymph % (Auto) Lymph # (Auto) [place] # (Auto) Band Neutrophils % Lymphocytes % Absolute Neutrophils D-Dimer VBG Lactic Acid Potassium Carbon Dioxide 15 L 19 L Anion Gap 25.0 H 18.0 H BUN 29 H 28 H Glucose 226 H 218 H Calcium Phosphorus Direct Bilirubin 0.3 H Total Protein Albumin Prostate Specific Ag 42.20 H Urine Appearance Cloudy A Urine Protein 30 A Urine Glucose (UA) >=500 A Urine Ketones 20 A Urine Occult Blood >=1.0 A Ur Leukocyte Esterase 500 A Urine RBC > 182 H Urine WBC > 182 H Urine Bacteria Mod A Urine Mucus Mod A 10/24/20 10/24/20 10/24/20 11:47 11:46 11:38 WBC 18.0 H RBC Hgb Hct MPV 10.8 H Neut % (Auto) 85.3 H Lymph % (Auto) 6.3 L Lymph # (Auto) 1.13 L [place] # (Auto) 1.44 H Band Neutrophils % Lymphocytes % Absolute Neutrophils 15.37 H D-Dimer 1.03 H VBG Lactic Acid 3.2 H Potassium Carbon Dioxide Anion Gap BUN Glucose Calcium Phosphorus Direct Bilirubin Total Protein Albumin Prostate Specific Ag Urine Appearance Urine Protein Urine Glucose (UA) Urine Ketones Urine Occult Blood Ur Leukocyte Esterase Urine RBC Urine WBC Urine Bacteria Urine Mucus Meds: Medications Amlodipine Besylate (Amlodipine 10 Mg Tablet) 10 mg PO HS ARTHUR Apixaban (Apixaban 5 Mg Tablet) 10 mg PO BID ARTHUR Atorvastatin Calcium (Atorvastatin 20 Mg Tablet) 20 mg PO HS ARTHUR Cefepime HCl (Cefepime 2 Gm Vial) 2 gm IV Q12H ARTHUR; Protocol Dextrose (Dextrose 50% 50 Ml Vial) 0 ml IV UD PRN PRN Reason: Hypoglycemia Diagnostic Test (Pha) (Accu-Chek 1 Each Strip) 1 each FS ACHS ARTHUR Docusate Sodium (Docusate Sodium 100 Mg Capsule) 100 mg PO BID ARTHUR Glucose (Dextrose 31 Gm Oral.Susp) 15 gm PO PRN PRN PRN Reason: Hypoglycemia Insulin Glargine (Insulin Glargine, Human 1 Unit/0.01 Ml) 30 unit SQ HS ARTHUR Insulin Human Lispro (Insulin Lispro 1 Unit/0.01 Ml Unit) 0 unit SQ ACHS ARTHUR; Protocol Iron Carb/Multivit/Bath/Folic Acid (Multivit,Ther Iron,Ca,Fa & Min 1 Tablet) 1 tab PO DAILY ARTHUR Lactulose (Lactulose 20 Gm/30 Ml Oral.Katt) 10 gm PO DAILYP PRN PRN Reason: Constipation Levothyroxine Sodium (Levothyroxine 50 Mcg Tablet) 50 mcg PO QAMAC ARTHUR Losartan Potassium (Losartan 50 Mg Tablet) 100 mg PO DAILY ARTHUR Ondansetron HCl (Ondansetron 4 Mg/2 Ml Vial) 4 mg IV Q4HP PRN; Protocol PRN Reason: Nausea And Vomiting Potassium Chloride (Potassium Chloride 10 Meq Tablet) 10 meq PO [facility] Senna (Sennosides 1 Tablet) 2 tab PO HSP PRN PRN Reason: Constipation Sodium Chloride (0.9 % Sodium Chloride 10 Ml Syringe) 10 ml IV Q8 [facility] Tamsulosin HCl (Tamsulosin 0.4 Mg Capsule) 0.8 mg PO HS ARTHUR A/P Narrative A/P Narrative: Assessment: 75-year-old male with a history of hypertension, hyperlipidemia, diabetes mellitus type 2, hypothyroidism, enlarged prostate, and recent urinary retention requiring Ruelas catheter placement in the ED followed by leakage around the Ruelas requiring another visit to the ED for irrigation now admitted for sepsis probably secondary to UTI. Patient was also found to have a small pulmonary embolism in the ED, new oxygen requirement of about 2 L/min. #Sepsis likely secondary to UTI -Prior urine cultures grew Enterococcus #Pulmonary embolism, low risk -unprovoked PE #Left testicular pain-possible epididymitis #Hypoxia probably due to PE: resolved #Diabetes mellitus type 2 #Hypertension #Hyperlipidemia #Hypothyroidism #Hx enlarged prostate #Hx of left testicular mass s/p resection #Left thyroid nodule Plan -Transfer to medical floor. -Continue Cefepime for now, discontinued Vancomycin. -Follow blood and urine cultures, de-escalate ABX accordingly. -Eliquis twice daily at PE dosing. -Urology following. -Lantus and SSI. -Medication reconciliation, continue essential home medications. -Trend labs. -DVT PPx: Eliquis -CODE STATUS: Full -Disposition: Home on longer course of oral antibiotic based on urine culture and early urology follow-up. Outpatient left testicular ultrasound and KUB xray. Planning for 6 months of anticoagulation for unprovoked PE with urology and PCP follow up for age appropriate cancer screening. Time Spent With Patient Time: Total time spent is greater than 50% in coordination of care (as documented) at patient's floor/unit and/or counseling patient:
[2020-10-25] MEDS ORDERED: ACETAMINOPHEN 160 MG/5 ML ORAL.SOL PO PRN (17:49)
[2020-10-25] MEDS ORDERED: ACETAMINOPHEN 325 MG TABLET PO ONE (17:53)
[2020-10-25] MEDS ORDERED: amLODIPine 10 MG TABLET PO SCH (21:00)
[2020-10-25] MEDS ORDERED: TAMSULOSIN 0.4 MG CAPSULE PO SCH (21:00)
[2020-10-25] MEDS ORDERED: ATORVASTATIN 20 MG TABLET PO SCH (21:00)
[2020-10-25] MEDS ORDERED: INSULIN GLARGINE, HUMAN 1 UNIT/0.01 ML SQ SCH (21:00)
[2020-10-26] MEDS: 0.9 % SODIUM CHLORIDE 10 ML SYRINGE IV SCH ×2 (05:48→15:36)
[2020-10-26 05:53] LABS: Hematocrit 34.3 % (41.0-55.0); Hemoglobin 11.4 g/dL (13.5-16.5); Mean Cell Volume 91.7 fL (80.0-100.0); Mean Corpuscular HGB Conc 33.2 g/dL (31.0-36.0); Mean Platelet Volume 10.8 fL (7.4-10.4); Platelet Count 186 K/mcL (140-440); RBC 3.74 M/mcL (4.50-5.90); Red Cell Distribution Width 12.7 % (11.5-14.5); WBC 13.3 K/mcL (4.5-11.0)
[2020-10-26 06:35] LABS: ALT/SGPT 10 U/L (<40); AST/SGOT 20 U/L (<40); Albumin 2.9 gm/dL (3.2-5.2); Albumin/Globulin Ratio 1.1 (1.0-2.3); Alkaline Phosphatase 79 U/L (39-117); Bilirubin,Direct < 0.2 mg/dL (0-0.3); Bilirubin,Total 0.7 mg/dL (0.1-1.0); Blood Urea Nitrogen 21 mg/dL (8-23); Calcium 8.2 mg/dL (8.6-10.4); Carbon Dioxide 26 mmol/L (22-30); Chloride 105 mmol/L (96-108); Globulin 2.7 gm/dL (2.2-3.7); Glomerular Filtration Rate 64; Glucose 127 mg/dL (70-105); Lactate Dehydrogenase 177 U/L (135-225); Triglycerides 78 mg/dL (<150); Uric Acid 3.7 mg/dL (2.5-8.0)
[2020-10-26 06:54] LABS: Band Neutrophils % 16 % (0-10); Eosinophils % (Manual) 1 % (0-7); Lymphocytes % 11 % (15-49); Monocytes % (Manual) 6 % (1-12); Platelet Estimate NORMAL (Normal); RBC Morphology NORMAL (Normal); Segmented Neutrophils % 66 % (38-78)
[2020-10-26] MEDS: INSULIN LISPRO 1 UNIT/0.01 ML UNIT SQ SCH ×2 (07:21→12:01)
[2020-10-26] MEDS ORDERED: LEVOTHYROXINE 50 MCG TABLET PO SCH (07:30)
[2020-10-26] MEDS ORDERED: POTASSIUM CHLORIDE 10 MEQ TABLET PO SCH (08:00)
[2020-10-26] MEDS: APIXABAN 5 MG TABLET PO SCH (08:09)
[2020-10-26] MEDS: CEFEPIME 2 GM VIAL IV SCH (08:10)
[2020-10-26] MEDS: DOCUSATE SODIUM 100 MG CAPSULE PO SCH ×2 (08:21→10:53)
[2020-10-26] MEDS ORDERED: LOSARTAN 50 MG TABLET PO SCH (09:00)
[2020-10-26] MEDS ORDERED: MULTIVIT,THER IRON,CA,FA & MIN 1 TABLET PO SCH (09:00)
[2020-10-26] MEDS ORDERED: ACETAMINOPHEN 325 MG TABLET PO PRN (10:23)
--- NOTE | 2020-10-26 11:05 | EKG ---
[facility] Test Date: 2020-10-24 Pat Name: Blade Ramos Department: ED Room: Gender: Male [employer]: : 1945 Requested By: Cliff López Order Number: [id number] Reading MD: Cb Hardwick M.D. Measurements Intervals [place] Rate: 122 P: 0 ME: 21 QRS: -70 QRSD: 162 T: 69 QT: 401 QTc: 572 Interpretive Statements Sinus tachycardia Left bundle branch block NO PRIOR TRACING FOR COMPARISON Electronically Signed On 10-26-2020 11:05:30 PDT by Cb Hardwick M.D. /store/[email or web address]/[id number]
--- NOTE | 2020-10-26 12:05 | Ultrasound Report ---
CLINICAL INFORMATION: Left testicle edema, history of testicle mass COMPARISON: 05/14/2019 FINDINGS: Both testes are normal and symmetric in size, position and configuration: The right is 3.8 x 2.6 cm and the left is 3.2 x 1.9 cm. Arterial blood flow is normal to both testes on color Doppler. The right testicle is unremarkable. The left testicle again shows extensive microlithiasis. 9 mm hypoechoic lesion, in the superior left testicle with increased peripheral vascularity, is unchanged from the ultrasound 1.5 years ago. 6 mm subcapsular cyst the superior left testicle demonstrates long-term stability. The left epididymis is hypervascular and enlarged spanning 2.4 x 1.8 cm . Right epididymis is normal size and echotexture 1.5 x 1.1 cm contains 4-5 small cysts ranging up to 9 mm. There is marked thickening of the scrotal soft tissues bilaterally. IMPRESSION: 1. 9 mm hypoechoic lesion in the superior left testicle is unchanged from ultrasound 1.5 years ago. Stability would militate against a malignant diagnosis. Could represent infarct or scarring from prior infection etc. 2. Left testicular microlithiasis - stable. 3. 8 mm subcapsular cyst superior left testicle - stable. 4. Moderate enlargement of the left epididymis with increased blood flow suggestive of epididymitis. 5. 4-5 epididymal cysts in the right measuring up to 9 mm. 6. Extensive thickening of the scrotal soft tissues typically indicative of inflammation. Interpreted and Authenticated by: Omkar Amaya 10/26/20
--- NOTE | 2020-10-26 15:41 | General Surgery Progress Note ---
SUBJECTIVE Subjective Patient information: Note initiated : 10/26/20 at 3:35 pm Service Date, if different from initiated Date: [] Patient: Blade Ramos 75 y/o M admitted on 10/24/20 for catheter leaking and nausea. Chief Complaint: [] Interval history: Patient has persistent discomfort left testis but at least not worse had no nausea vomiting Patient continues to void well and has no gross hematuria noted on his anticoagulation Scrotal ultrasound demonstrates persistent but stable left testicular lesion and associated inflammatory response with likely epididymitis orchitis No new flank pain from his presumed left renal pelvis stone Constitutional Vitals: Vital Signs Temp Pulse Resp BP Pulse Ox 99.2 F H 84 20 131/72 94 10/26/20 12:00 10/26/20 12:00 10/26/20 12:00 10/26/20 12:00 10/26/20 12:00 Period Temp Pulse Resp BP Sys/Henry Pulse Ox Last 24 Hr 98.4 F-100.7 F 72-88 16-22 131-144/72-85 94-98 Intake and Output 10/26/20 10/26/20 10/26/20 05:59 13:59 21:59 Intake Total 220 480 Output Total 125 Balance 95 480 Weight 207 lb 6.4 oz Patient Weight 10/27/20 05:59 Weight 207 lb 6.4 oz Intake & Output: Intake & Output 10/26/20 10/26/20 10/26/20 05:59 13:59 21:59 Intake Total 220 480 Output Total 125 Balance 95 480 Weight 207 lb 6.4 oz Intake: Oral 220 480 Output: Void Amount 125 Other: Meal Lunch Percent of Meal Consumed 75% Urine Appearance Clear Clear # Voids 2 Additional findings Additional findings: Patient remains nontoxic alert and cooperative HEENT within normal limits Back no CVA tenderness Abdomen soft nontender no masses left testis still with inflammation but overall no change in right testis remembers normal Cardiac regular rhythm Chest continues with nontroublesome respiratory excursion A/P Narrative A/P Narrative: Assessment: #1 resolving prostatitis cystitis and ongoing epididymitis orchitis left side--final culture came back with E. coli sensitive to Septra with resistant to fluoroquinolones and ampicillin 2. Left renal calculus stable and presently asymptomatic 3. Chronic anticoagulation for his thrombosis and will continue same as per medicine 4. BPH with markedly elevated PSA likely associated prostatitis and findings consistent with urine culture Plan: Proceed with continued medical therapy with anticoagulation and request continue Flomax Bactrim DS for minimum of 1 month and local therapy he for left testis BPH treatment with Flomax along with antibiotics had decreased caffeine intake as able Continue hydration and conservative management for nephrolithiasis Follow-up in approximately 2 to 3 weeks as outpatient unless new symptoms arise in the interim Appreciate hospitalist help and if patient has earlier symptomatic problems ret urn at any time to urology clinic Time Spent With Patient Time: Total time spent is greater than 50% in coordination of care (as documented) at patient's floor/unit and/or counseling patient:
--- NOTE | 2020-10-26 16:05 | Discharge Summary ---
Discharge Provider Provider Patient information: Note initiated : 10/26/20 at 4:00 pm Service Date, if different from initiated Date: [] Patient: Blade Ramos 75 y/o M admitted on 10/24/20 for catheter leaking and nausea. Chief Complaint: [] Date of admission: 10/24/20 16:30 Discharge date: 10/26/20 Primary care physician: Main Quiroga M.D., F.A.A.F.P. Consults: 10/24/20 Consult to Physician [CONS] Stat Comment: Sepsis, PE Consulting Provider: Ralph Moreland Reason For Exam: Physician to Consult 10/24/20 16:42 Consult to Physician [CONS] Stat Comment: Consulting Provider: Zen Witt Reason For Exam: Physician to Consult Discharge Meds Discharge Medications Home Medications dostvkjo-ezu-YV-lycopen-lutein 1 each PO DAILY 05/29/19 [History Confirmed 10/24/20 Last Taken Unknown] amlodipine 10 mg tablet 10 mg PO HS #90 tab 12/09/19 [Rx Confirmed 10/24/20 Last Taken Unknown] insulin syringe-needle U-100 0.3 mL 31 gauge x 5/16" #100 each 03/04/20 [Rx Confirmed 10/24/20 Last Taken Unknown] blood sugar diagnostic #100 unknown measurement unit code: strip 03/11/20 [Rx Confirmed 10/24/20 Last Taken Unknown] sildenafil 100 mg tablet 100 mg PO ONCE PRN #25 tab 03/11/20 [Rx Confirmed 10/24/20 Last Taken Unknown] blood-glucose meter #1 each 03/12/20 [Rx Confirmed 10/24/20 Last Taken Unknown] lancets #100 each 03/12/20 [Rx Confirmed 10/24/20 Last Taken Unknown] metformin 500 mg tablet See Rx Instructions .ROUTE .COMPLEX #450 tab 03/26/20 [Rx Confirmed 10/24/20 Last Taken Unknown] Levemir U-100 Insulin 30 unit SUBCUT HS 10/24/20 [History Confirmed 10/24/20 Last Taken Unknown] atorvastatin 20 mg PO HS 10/24/20 [History Confirmed 10/24/20 Last Taken Unknown] levothyroxine 50 mcg PO DAILY 10/24/20 [History Confirmed 10/24/20 Last Taken Unknown] losartan 100 mg PO DAILY 10/24/20 [History Confirmed 10/24/20 Last Taken Unknown] sildenafil 100 mg PO PRN PRN 10/24/20 [History Confirmed 10/24/20 Last Taken Unknown] apixaban [Eliquis] 5 mg PO BID #60 tab 10/26/20 [Rx Last Taken Unknown] sulfamethoxazole-trimethoprim 1 tab PO BID 28 Days #56 tab 10/26/20 [Rx Last Taken Unknown] tamsulosin 0.8 mg PO HS #60 cap 10/26/20 [Rx Last Taken Unknown] COURSE Hospital Course Hospital course: Mr. Ramos is a 75 year old male with a history of hypertension, hyperlipidemia, diabetes mellitus type 2, hypothyroidism, recent urinary retention requiring Ruelas catheter placement in the emergency department on 10/18/2020 complicated by leaking around the Ruelas catheter for which the patient returned to the emergency department on 10/20/2020 and received bladder irrigation, discharged home with the same Ruelas catheter. On 10/24/2020 the patient presented to the ED for nausea and chills found to be septic likely s econdary to UTI. Patient had leukocytosis, lactic acid was 3.2. Work-up included D-dimer which was elevated, a CTA of the chest showed a small pulmonary embolism. Patient also had a new oxygen requirement in the emergency department. Patient says he has a history of enlarged prostate for which he followed with a urology in the past. He says that he had an elevated PSA at that time, prostate biopsies were negative. 10/25 Urine culture growing gram negative bacillus-Vancomycin discontinued, Cefepime continued. Urology recommends longer course of antibiotic given concerns for a ureteral stone and left testicular tenderness that may be infectious in addition to the UTI. PSA markedly elevated, urology feels likely secondary to prostatitis. 10/26 Urine culture grew E coli resistant to fluoroquinolones, sensitive to Bactrim. Scrotum ultrasound showed stable hypoechoic lesion in the superior left testicle, unchanged from 1.5 years ago, moderate enlargement of the left epididymitis with increased blood flow suggestive of epididymitis. Urology ok with discharge on Bactrim, recommenced 4 weeks of antibiotic treatment. The patient was discharged to home. New medications are Bactrim, Eliquis, Flomax. Holding Indapamide at discharge for 1 week as urinating and even walking to the restroom is uncomfortable due to epididymitis. Post hospital follow up; -Blood pressure management-could probably resume Indapamide at follow up. -Follow up with nephrology for enlarged prostate and presumed left renal pelvis stone. -Bactrim for at least 4 weeks-monitor renal function and potassium level pe riodically. -Complete at least 3 months of anticoagulation for pulmonary embolism. Physical exam Head: Atraumatic, normal inspection. Eyes: normal appearance, no scleral icterus. Neck: full ROM Respiratory: no respiratory distress. Cardiovascular: normal rate and rhythm, S1, S2. GI/Abdominal: soft, nontender, no guarding. Extremities: full range of motion, nontender. Neurological: CN II-XII intact, intact motor, intact sensation. Psychiatric: normal mood. Skin: warm, normal color Discharge diagnosis: Sepsis secondary to urinary tract infection Secondary discharge diagnosis: Left epididymitis Possible acute prostatitis Presumed left ureteral calculus Pulmonary embolism Reason for admission: Sepsis Time Spent with Patient Time attestation: Total time spent providing and/or coordinating discharge services: EXAM Constitutional Vitals: Temp Pulse Resp BP Pulse Ox 99.2 F H 84 20 131/72 94 10/26/20 12:00 10/26/20 12:00 10/26/20 12:00 10/26/20 12:00 10/26/20 12:00 Discharge Data Data Completed and Pending Labs on day of discharge: Labs from last 24 hours 10/26/20 10/26/20 10/26/20 07:55 05:14 05:13 WBC 13.3 H RBC 3.74 L Hgb 11.4 L Hct 34.3 L MCV 91.7 MCH 30.5 MCHC 33.2 RDW 12.7 Plt Count 186 MPV 10.8 H Seg Neutrophils % 66 Band Neutrophils % 16 H Lymphocytes % 11 L Monocytes % (Manual) 6 Eosinophils % (Manual) 1 Platelet Estimate Normal RBC Morphology Normal Sodium 139 Potassium 3.5 Chloride 105 Carbon Dioxide 26 Anion Gap 8.0 BUN 21 Creatinine 1.1 GFR Calculation 64 Glucose 127 H Uric Acid 3.7 Calcium 8.2 L Phosphorus 2.0 L Magnesium 1.6 Total Bilirubin 0.7 Direct Bilirubin < 0.2 GGT 24 AST 20 ALT 10 Alkaline Phosphatase 79 Lactate Dehydrogenase 177 Total Protein 5.6 L Albumin 2.9 L Globulin 2.7 Albumin/Globulin Ratio 1.1 Triglycerides 78 Vancomycin Trough Pending Preliminary micro results at discharge 10/24/20 11:40 Blood Culture - Preliminary Blood 10/24/20 11:38 Blood Culture - Preliminary Blood Discharge Plan Patient/Caregiver Discharge Instructions Activity: increase activity as tolerated Diet: Consistent Carbohydrate Instructions: Tamsulosin (By mouth), Sulfamethoxazole (By mouth), Apixaban (By mouth), Sepsis (GEN) Activity Restrictions/Additional Instructions: Resume home diet as tolerated. Take all meals up in chair sitting at 90 degrees. Increase activity as tolerated. Continue fall precautions. Take all medication as directed. Your prescription is with your discharge paperwork. Your medications were electronically transmitted to [facility] pharmacy Take your insurance cards and photo ID to slat pickler your medication. Return to ER for fever, chills, uncontrolled pain, inability to urinate or have a bowel movement, nausea and/or vomiting, swelling, redness, signs of infection, shortness of breath, chest pain, return of symptoms, or other acute symptom This discharge packet is provided to you to help keep you informed about your care. We want to ensure you get everything you need when you go home. You will also be receiving a call from us in a few days to follow up with you and see how you are doing since your discharge. This gives us a chance to listen to any concerns you maybe experiencing since you were discharged or any additional needs you may have, as well as providing us feedback on your care experience. We strive to always provide excellent care and thank you for your feedback and for choosing [facility]. Prescriptions: New Eliquis 5 mg Tablet 5 mg PO BID Qty: 60 RF: 4 sulfamethoxazole-trimethoprim 800-160 mg Tablet 1 tab PO BID 28 Days Qty: 56 RF: 0 tamsulosin 0.4 mg Capsule 0.8 mg PO HS Qty: 60 RF: 12 Continued amlodipine [Norvasc] 10 mg tablet 10 mg PO HS Qty: 90 RF: 4 (DME) insulin syringe-needle U-100 [BD Insulin Syringe Ultra-Fine] 0.3 mL 31 gauge x 5/16" syringe See Dose Instructions .ROUTE .MEDSUPPLY Qty: 100 RF: 4 sildenafil 100 mg tablet 100 mg PO ONCE PRN (Reason: erectile dysfunction) Qty: 25 RF: 5 (DME) Accu-Chek Caprice Plus test strp Strip See Rx Instructions .ROUTE .COMPLEX Qty: 100 RF: 4 (DME) blood-glucose meter [Accu-Chek Caprice Plus Meter] Misc See Rx Instructions .ROUTE .MEDSUPPLY Qty: 1 RF: 0 metformin 500 mg tablet See Rx Instructions .ROUTE .COMPLEX Qty: 450 RF: 4 hyvwvggf-qdn-OI-lycopen-lutein 1 EACH tablet 1 each PO DAILY RF: 0 atorvastatin 20 mg tablet 20 mg PO HS RF: 0 levothyroxine 50 mcg tablet 50 mcg PO DAILY RF: 0 losartan 100 mg tablet 100 mg PO DAILY RF: 0 Levemir U-100 Insulin 100 unit/mL solution 30 unit subcut HS RF: 0 sildenafil 100 mg tablet 100 mg PO PRN PRN (Reason: Erectile Dysfunction) RF: 0 Discontinued potassium chloride 10 mEq capsule, extended release 10 meq PO DAILY Qty: 90 RF: 3 indapamide 2.5 mg tablet 2.5 mg PO Q48H RF: 0 No Action (DME) lancets [Accu-Chek Multiclix Lancet] Misc See Rx Instructions .ROUTE .MEDSUPPLY Qty: 100 RF: 6 Follow Up Plan Follow up with: Nara Klein ARNP [Nurse Practitioner] - 11/11/20 8:45 am Main Quiroga MD, FAAFP [Primary Care Provider] - 11/02/20 3:15 pm Patient Disposition: Home, Self-Care Prognosis: Good Discharge Orders: Discharge Order (Routine); Ordered 10/26/20 Ordered By: Ralph Moreland
[2020-10-26] MEDS ORDERED: SULFAMETHOXAZOLE/TRIMETHOPRIM 1 TABLET PO SCH (21:00)
== END 2020-10-26 17:10 | disposition home or self-care (01) | DRG 871 ==
LOC: ED 10:48 → ICU 16:30
PROVIDERS: ADMIT Internal Medicine; ATTEND Internal Medicine